=== PATIENT | female | born 1930 | race Caucasian/White ===

== ENCOUNTER 2016-11-07 09:14 | Emergency (ER) | payer MEDICARE, BC | END 2016-11-07 16:56 | disposition critical access hospital (66) | LOC: ER 09:14 | DX: J18.9 Pneumonia, unspecified organism (principal); F03.90 Unspecified dementia, unspecified severity, without behavioral disturbance, psychotic disturbance, mood disturbance, and anxiety; I10 Essential (primary) hypertension; E78.5 Hyperlipidemia, unspecified; Z95.1 Presence of aortocoronary bypass graft; Z79.899 Other long term (current) drug therapy; Z79.82 Long term (current) use of aspirin; Z88.0 Allergy status to penicillin | CPT/HCPCS: 36415; 51702; 84145; 87502; 96365 ==

== ENCOUNTER 2016-11-07 09:14 | Inpatient (IN) | payer MEDICARE, BC ==
--- NOTE | 2016-11-07 18:19 | NUR ---
PATIENT IS ON ASPIRATION PRECAUTIONS, HEAD OF BED 35 DEGREES, SUCTION SET UP AT BEDSIDE.
--- NOTE | 2016-11-07 18:45 | NUR ---
MEPILEX TO RIGHT FOOT WOUND BLUE HEEL BOOTIES TO BILATERAL HEELS APPLIED
[2016-11-13] MEDS ORDERED: PRAVACHOL40 MG PO (13:13)
[2016-11-13] MEDS ORDERED: ISOSORBIDE MONO60 MG PO (13:13)
[2016-11-13] MEDS ORDERED: ASPIR 8181 MG PO (13:13)
[2016-11-13] MEDS ORDERED: ALTACE5 MG PO (13:13)
[2016-11-13] MEDS ORDERED: XANAX0.5 MG PO (13:14)
[2016-11-13] MEDS ORDERED: XANAX1 MG PO (13:14)
[2016-11-13] MEDS ORDERED: COREG12.5 MG PO (13:14)
[2016-11-13] MEDS ORDERED: K-DUR20 MEQ PO (13:14)
[2016-11-13] MEDS ORDERED: LASIX40 MG PO (13:15)
[2016-11-13] MEDS ORDERED: PLAVIX75 MG PO (13:15)
[2016-11-13] MEDS ORDERED: ZANTAC150 MG PO (13:15)
[2016-11-13] MEDS ORDERED: PROCARDIA XL30 MG PO (13:15)
[2016-11-13] MEDS ORDERED: FLURAZEPAM HCL30 MG PO (13:16)
[2016-11-13] MEDS ORDERED: SENNA8.6 MG PO (13:16)
[2016-11-13] MEDS ORDERED: HYDROCODON-ACE1 EAC4 PO (13:16)
[2016-11-13] MEDS ORDERED: FLEET ENEMA133 ML RC (13:17)
[2016-11-13] MEDS ORDERED: MILK OF MA400 MG/5 M PO (13:17)
[2016-11-13] MEDS ORDERED: DULCOLAX10 MG RC (13:17)
[2016-11-13] MEDS ORDERED: COLACE100 MG PO (13:17)
[2016-11-13] MEDS ORDERED: [UNRECOGNIZED DRUG - OTHER] TOP (13:18)
[2016-11-13] MEDS ORDERED: DOXEPIN HCL25 MG PO (13:18)
[2016-11-13] MEDS ORDERED: VITAMIN C500 M1 PO (13:19)
[2016-11-13] MEDS ORDERED: JUVEN PACKET1 EACH PO (13:19)
[2016-11-13] MEDS ORDERED: DAILY VITE1 EACH PO (13:19)
[2016-11-13] MEDS ORDERED: ACETAMINOPHEN650 MG RC (13:20)
[2016-11-13] MEDS ORDERED: TYLENOL325 MG PO (13:20)
[2016-11-13] MEDS ORDERED: LEVAQUIN750 MG PO (13:20)
== END 2016-11-13 13:20 | DRG 189 ==
LOC: ER 09:14 → MED 16:57
PROVIDERS: ADMIT Internal Medicine
DX: J96.01 Acute respiratory failure with hypoxia (principal); J18.9 Pneumonia, unspecified organism; I44.2 Atrioventricular block, complete; N17.9 Acute kidney failure, unspecified; E87.0 Hyperosmolality and hypernatremia; S82.141A Displaced bicondylar fracture of right tibia, initial encounter for closed fracture; Y95 Nosocomial condition; I12.9 Hypertensive chronic kidney disease with stage 1 through stage 4 chronic kidney disease, or unspecified chronic kidney disease; N18.3 Chronic kidney disease, stage 3 (moderate); I25.10 Atherosclerotic heart disease of native coronary artery without angina pectoris; Z98.61 Coronary angioplasty status; Z95.0 Presence of cardiac pacemaker; E78.5 Hyperlipidemia, unspecified; F41.9 Anxiety disorder, unspecified; F03.90 Unspecified dementia, unspecified severity, without behavioral disturbance, psychotic disturbance, mood disturbance, and anxiety; Z86.73 Personal history of transient ischemic attack (TIA), and cerebral infarction without residual deficits; Z82.49 Family history of ischemic heart disease and other diseases of the circulatory system; Z82.5 Family history of asthma and other chronic lower respiratory diseases; Z88.0 Allergy status to penicillin; E87.6 Hypokalemia; S82.891A Other fracture of right lower leg, initial encounter for closed fracture; Z66 Do not resuscitate; Z95.1 Presence of aortocoronary bypass graft; E83.42 Hypomagnesemia; D72.825 Bandemia; D64.9 Anemia, unspecified
CPT/HCPCS: 36415; 84145; 87502; 92610; 97162-GP; 97166; J1650; J3370; J7050